=== PATIENT | female | born 1990 | race African-American/Black ===

== ENCOUNTER 2018-02-22 13:18 | Emergency (ER) | payer SELFPAY ==
[~2018-02-22 13:18] MED LIST: LORT5TAB PO; Z.0.NO CURRENT MEDS
[2018-02-22 13:38] VITALS: BP 128/81; PULSE 78; RESP 18; TEMP 98.6; O2SAT 99
== END 2018-02-22 14:22 | disposition left against medical advice (07) ==
LOC: NED 13:18
DX: H57.9 Unspecified disorder of eye and adnexa (principal); Z53.21 Procedure and treatment not carried out due to patient leaving prior to being seen by health care provider
CPT/HCPCS: 99281